=== PATIENT | female | born 1990 | race Caucasian/White ===

== ENCOUNTER 2018-01-04 13:24 | Emergency (ER) | payer OTHER ==
[~2018-01-04] VITALS: Ht 170.2 cm; Wt 72.6 kg
--- NOTE | 2018-01-04 13:28 | NUR ---
Dr Grajeda at the bedside for MSE.
[2018-01-04 13:34] VITALS: BP 120/61
--- NOTE | 2018-01-04 13:37 | NUR ---
Patient discharged to home in stable conditon. Written and verbal after care instructions given. Patient verbalizes understanding of instructions.
== END 2018-01-04 13:37 | disposition home or self-care (01) ==
LOC: ER 13:24
DX: B00.1 Herpesviral vesicular dermatitis (principal)
CPT/HCPCS: 99283; A4663